=== PATIENT | female | born 1995 | race Caucasian/White ===

== ENCOUNTER 2021-10-26 16:39 | Outpatient (CLI) | payer OTHER | END 2021-10-26 21:09 | disposition home or self-care (01) | LOC: NST 16:39 | PROVIDERS: ATTEND Obstetrics & Gynecology | DX: Z34.83 Encounter for supervision of other normal pregnancy, third trimester (principal) ==

== ENCOUNTER 2023-07-17 09:39 | Outpatient (CLI) | payer OTHER ==
[~2023-07-17 09:39] MED LIST: NAPR500T14 PO; PRENATAL TABLE1 EAC1 PO
== END 2023-07-17 09:40 | disposition home or self-care (01) ==
LOC: PRENATAL 09:39
PROVIDERS: ATTEND Obstetrics & Gynecology Maternal & Fetal Medicine
DX: O35.3XX0 Maternal care for (suspected) damage to fetus from viral disease in mother, not applicable or unspecified (principal); O44.00 Complete placenta previa NOS or without hemorrhage, unspecified trimester; Z3A.19 19 weeks gestation of pregnancy

== ENCOUNTER 2023-10-29 09:03 | Outpatient (CLI) | payer OTHER | END 2023-10-29 09:04 | disposition home or self-care (01) | LOC: PRENATAL 09:03 | PROVIDERS: ATTEND Obstetrics & Gynecology Maternal & Fetal Medicine | DX: O26.849 Uterine size-date discrepancy, unspecified trimester (principal); O36.8199 Decreased fetal movements, unspecified trimester, other fetus; Z3A.34 34 weeks gestation of pregnancy ==